=== PATIENT | male | born 1975 | race American Indian/Alaskan Native ===

== ENCOUNTER 2018-07-05 11:01 | Emergency (ER) | payer SELFPAY ==
[2018-07-05] MEDS ORDERED: NACL 0.9% 1000 ML 1,000 ML IV ONE ×2 (11:34→14:17)
[2018-07-05] MEDS ORDERED: ZOFRAN IV ONE (11:38)
[2018-07-05] MEDS ORDERED: D50W (25GM) Syringe IV ONE ×2 (11:38→11:41)
[2018-07-05] MEDS ORDERED: ZOFRAN ONE (11:41)
[2018-07-05 12:03] LABS: Basophils # (Auto) 0.1 K/mm3 (0.0-0.1); Basophils % (Auto) 0.7 % (0.0-1.8); Eosinophils % (Auto) 0.1 % (0.0-4.3); Hematocrit 37.2 % (35.5-45.6); Hemoglobin 12.8 gm/dl (11.8-15.2); Lymphocytes # (Auto) 1.6 K/mm3 (1.2-5.4); Lymphocytes % (Auto) 20.8 % (13.4-35.0); Mean Corpuscular HGB Conc 34 % (32-34); Mean Corpuscular Volume 84 fl (84-94); Monocytes # (Auto) 1.2 K/mm3 (0.0-0.8); Monocytes % (Auto) 15.8 % (0.0-7.3); Platelet Count 256 K/mm3 (140-440); Red Blood Count 4.41 M/mm3 (3.65-5.03); Red Cell Distribution Width 13.5 % (13.2-15.2)
[2018-07-05 12:19] LABS: Partial Thromboplastin Time 35.4 Sec. (24.2-36.6)
--- NOTE | 2018-07-05 12:23 | Emergency Department Report ---
HPI - General Chief Complaint: Weakness Time Seen by Provider: 07/05/18 11:28 - HPI HPI: Room 23 The patient is a 42-year-old male presenting with a chief complaint of weakness and right back pain. The patient states for the past 4 days he's had a decre ased appetite. Patient states for the past 3 days he's had pain in his right lower back has been sharp and intermittent in nature. The patient states he's had nausea vomiting and diarrhea for the same amount of time. This morning the patient noticed hematuria. Patient denies dysuria or fever. Location: [See above] Duration: [See above] Quality: Pain Severity: Moderate Modifying factors: [see above] Context: [see above] Mode of transportation: [not driving] ED Past Medical Hx - Past Medical History Hx Hypertension: Yes Hx Diabetes: Yes - Surgical History Past Surgical History?: No - Family History Family history: no significant - Social History Smoking Status: Never Smoker Substance Use Type: None (denies illicit drug use) - Medications Home Medications: Home Medications Medication Instructions Recorded Confirmed Last Taken Type HYDROcodone/APAP 5-325 [[place] 1 - 2 each PO Q6HR PRN #14 tablet 07/05/18 Unknown Rx 5/325] Promethazine [Phenergan TAB] 25 mg PO Q6HR PRN #20 tab 07/05/18 Unknown Rx Promethazine [Phenergan] 25 mg [place] Q6HR PRN #5 supp.rect 07/05/18 Unknown Rx Sulfamethoxazole/Trimethoprim 1 each PO BID #20 tablet 07/05/18 Unknown Rx [Bactrim DS TAB] ED Review of Systems ROS: Stated complaint: BACK PAIN/NO APPETITE Other details as noted in HPI Constitutional: denies: fever Eyes: denies: eye pain ENT: denies: throat pain Respiratory: no symptoms reported Cardiovascular: denies: chest pain Endocrine: no symptoms reported Gastrointestinal: nausea, vomiting, diarrhea. denies: abdominal pain Genitourinary: hematuria. denies: dysuria Musculoskeletal: back pain Neurological: denies: headache Physical Exam - Physical Exam Vital Signs: Vital Signs 07/05/18 07/05/18 11:12 11:55 Temperature 98.4 F 100 F H Pulse Rate 111 H 107 H Respiratory 18 20 Rate Blood Pressure 132/84 Blood Pressure 150/105 [Left] O2 Sat by Pulse 98 Oximetry Physical Exam: GENERAL: The patient is well-developed well-nourished male lying on stretcher appearing fatigued but in no acute distress. [] HEENT: Normocephalic. Atraumatic. Extraocular motions are intact. Patient has moist mucous membranes. NECK: Supple. Trachea midline CHEST/LUNGS: Clear to auscultation. There is no respiratory distress noted. HEART/CARDIOVASCULAR: Regular. There is tachycardia. There is no gallop rub or murmur. ABDOMEN: Abdomen is soft, nontender. Patient has normal bowel sounds. There is no abdominal distention. SKIN: There is no rash. There is no edema. There is no diaphoresis. NEURO: The patient is awake, alert, and oriented. The patient is cooperative. The patient has normal speech MUSCULOSKELETAL: There is no evidence of acute injury. ED Course Vital Signs 07/05/18 07/05/18 11:12 11:55 Temperature 98.4 F 100 F H Pulse Rate 111 H 107 H Respiratory 18 20 Rate Blood Pressure 132/84 Blood Pressure 150/105 [Left] O2 Sat by Pulse 98 Oximetry - Reevaluation(s) Reevaluation #1: 07/05/18 14:33 Patient states his pain has decreased to a 1/10 after pain medication. ED Medical Decision Making - Lab Data Result diagrams: 07/05/18 11:14 07/05/18 11:14 Laboratory Tests 07/05/18 07/05/18 07/05/18 11:14 11:14 11:14 WBC 7.6 RBC 4.41 Hgb 12.8 Hct 37.2 MCV 84 MCH 29 MCHC 34 RDW 13.5 Plt Count 256 Lymph % (Auto) 20.8 [place] % (Auto) 15.8 H Eos % (Auto) 0.1 Baso % (Auto) 0.7 Lymph # 1.6 [place] # 1.2 H Eos # 0.0 Baso # 0.1 Seg Neutrophils % 62.6 Seg Neutrophils # 4.8 PT 13.6 INR 1.00 APTT 35.4 Sodium 131 L Potassium 3.3 L Chloride 95.0 L Carbon Dioxide 22 Anion Gap 17 BUN 21 H Creatinine 2.0 H Estimated GFR 45 BUN/Creatinine Ratio 11 Glucose 47 L POC Glucose Calcium 9.1 Total Bilirubin 3.10 H AST 30 ALT 27 Alkaline Phosphatase 97 Total Creatine Kinase Total Protein 7.2 Albumin 3.4 L Albumin/Globulin Ratio 0.9 Lipase 29 Urine Color Urine Turbidity Urine pH Ur Specific [place] Urine Protein Urine Glucose (UA) Urine Ketones Urine Blood Urine Nitrite Urine Bilirubin Urine Urobilinogen Ur Leukocyte Esterase Urine WBC (Auto) Urine RBC (Auto) U Epithel Cells (Auto) Urine Bacteria (Auto) 07/05/18 07/05/18 07/05/18 11:14 11:39 12:16 WBC RBC Hgb Hct MCV MCH MCHC RDW Plt Count Lymph % (Auto) [place] % (Auto) Eos % (Auto) Baso % (Auto) Lymph # [place] # Eos # Baso # Seg Neutrophils % Seg Neutrophils # PT INR APTT Sodium Potassium Chloride Carbon Dioxide Anion Gap BUN Creatinine Estimated GFR BUN/Creatinine Ratio Glucose POC Glucose 50 L 176 H Calcium Total Bilirubin AST ALT Alkaline Phosphatase Total Creatine Kinase 143 Total Protein Albumin Albumin/Globulin Ratio Lipase Urine Color Urine Turbidity Urine pH Ur Specific [place] Urine Protein Urine Glucose (UA) Urine Ketones Urine Blood Urine Nitrite Urine Bilirubin Urine Urobilinogen Ur Leukocyte Esterase Urine WBC (Auto) Urine RBC (Auto) U Epithel Cells (Auto) Urine Bacteria (Auto) 07/05/18 Unknown WBC RBC Hgb Hct MCV MCH MCHC RDW Plt Count Lymph % (Auto) [place] % (Auto) Eos % (Auto) Baso % (Auto) Lymph # [place] # Eos # Baso # Seg Neutrophils % Seg Neutrophils # PT INR APTT Sodium Potassium Chloride Carbon Dioxide Anion Gap BUN Creatinine Estimated GFR BUN/Creatinine Ratio Glucose POC Glucose Calcium Total Bilirubin AST ALT Alkaline Phosphatase Total Creatine Kinase Total Protein Albumin Albumin/Globulin Ratio Lipase Urine Color Yellow Urine Turbidity Slightly-cloudy Urine pH 5.0 Ur Specific [place] 1.006 Urine Protein 100 mg/dl Urine Glucose (UA) 150 Urine Ketones Neg Urine Blood Sm Urine Nitrite Neg Urine Bilirubin Neg Urine Urobilinogen 2.0 Ur Leukocyte Esterase Mod Urine WBC (Auto) 15.0 H Urine RBC (Auto) 2.0 U Epithel Cells (Auto) 1.0 Urine Bacteria (Auto) 1+ - Radiology Data Radiology results: report reviewed (CT abdomen and pelvis), image reviewed (CT abdomen and pelvis) [facility] [address] [place] [address] Cat Scan Report Signed Patient: CARMELINA MINOR MR#: [id number] : 1975 Acct:[id number] Age/Sex: 42 / M ADM Date: 07/05/18 Loc: ED Attending Dr: Ordering Physician: YOSI HU MD Date of Service: 07/05/18 Procedure(s): CT abdomen pelvis wo con Accession Number(s): [id number] cc: YOSI HU MD FINAL REPORT EXAM: CT ABDOMEN PELVIS WO CON HISTORY: right back pain TECHNIQUE: CT examination of the ABDOMEN without IV contrast CT examination of the PELVIS w ithout IV contrast PRIORS: None. FINDINGS: Slight linear scar versus atelectasis right lung base. No acute fracture. Normal noncontrast appearance of the liver, adrenals, pancreas, and spleen. Normal caliber abdominal aorta and IVC. Minimal calcific density in the distal gallbladder lumen region may be a small gallstone. No other biliary pathology. No renal calculus or hydronephrosis. No ureteral calculus or distention. No renal mass. Small hiatal hernia. Otherwise normal-appearing stomach and duodenum. No small bowel distention in the abdomen and pelvis. Very small fat containing umbilical hernia and very small fat containing right inguinal hernia. No pelvic free fluid. Normal-appearing urinary bladder, prostate, and seminal vesicles. No definite rectal abnormality. Normal-appearing descending and sigmoid colon. No gross ascites, free air, or colonic distention. Slight diverticulosis ascending colon without definite CT evidence of diverticulitis. Normal-appearing cecum, terminal ileum, and appendix. IMPRESSION: Slight diverticulosis ascending colon without definite CT evidence of acute inflammation Minimal calcification distal gallbladder lumen may be a small gallstone Slight linear scar versus atelectasis right lung base Small hiatal hernia Transcribed By: BAL Dictated By: ANGELITA GU MD Electronically Authenticated By: ANGELITA GU MD Signed Date/Time: 07/05/181335 DD/ 38 TD/TT: 07/05/181338 - Differential Diagnosis hypoglycemia, dehydration, gastroenteritis, renal colic Critical care attestation.: If time is entered above; I have spent that time in minutes in the direct care of this critically ill patient, excluding procedure time. ED Disposition Clinical Impression: Pyelonephritis, Right low back pain, Renal insufficiency, Fever Disposition: TO HOME OR SELFCARE Is pt being admited?: No Does the pt Need Aspirin: No Condition: Stable Instructions: Acute Pyelonephritis (ED), Flank Pain (ED) Additional Instructions: Return to the emergency department immediately should you develop worsening symptoms, fever, inability to tolerate food or liquid or any other concerns. Prescriptions: HYDROcodone/APAP 5-325 [[place] 5/325] 1 - 2 each PO Q6HR PRN #14 tablet PRN Reason: Pain Promethazine [Phenergan TAB] 25 mg PO Q6HR PRN #20 tab PRN Reason: Nausea Promethazine [Phenergan] 25 mg [place] Q6HR PRN #5 supp.rect PRN Reason: Vomiting Sulfamethoxazole/Trimethoprim [Bactrim DS TAB] 1 each PO BID #20 tablet Referrals: PRIMARY CAREMD [Primary Care Provider] - 3-5 Days NICOLE RYAN MD [Staff Physician] - 3-5 Days (Dr Ryan is a thermometer tester. Please follow-up with him for further evaluation) Time of Disposition: 14:41
[2018-07-05 12:26] LABS: Albumin 3.4 g/dL (3.9-5); Calcium 9.1 mg/dL (8.4-10.2)
--- NOTE | 2018-07-05 13:36 | Cat Scan Report ---
FINAL REPORT EXAM: CT ABDOMEN PELVIS WO CON HISTORY: right back pain TECHNIQUE: CT examination of the ABDOMEN without IV contrast CT examination of the PELVIS without IV contrast PRIORS: None. FINDINGS: Slight linear scar versus atelectasis right lung base. No acute fracture. Normal noncontrast appearan ce of the liver, adrenals, pancreas, and spleen. Normal caliber abdominal aorta and IVC. Minimal calcific density in the distal gallbladder lumen region may be a small gallstone. No other bi liary pathology. No renal calculus or hydronephrosis. No ureteral calculus or distention. No renal mass. Small hiatal hernia. Otherwise normal-appearing stomach and duodenum. No small bowel distention in th e abdomen and pelvis. Very small fat containing umbilical hernia and very small fat containing right inguinal hernia. No pelvic free fluid. Normal-appearing urinary bladder, prostate, and seminal vesicles. No definite r ectal abnormality. Normal-appearing descending and sigmoid colon. No gross ascites, free air, or colo renzo distention. Slight diverticulosis ascending colon without definite CT evidence of diverticulitis. Normal-appearing cecum, terminal ileum, and appendix. IMPRESSION: Slight diverticulosis ascending colon without definite CT evidence of acute inflammation Minimal calcification distal gallbladder lumen may be a small gallstone Slight linear scar versus atelectasis right lung base Small hiatal hernia
[2018-07-05] MEDS ORDERED: TYLENOL PO ONE (14:17)
[2018-07-05] MEDS ORDERED: SUBLIMAZE IV ONE (14:17)
[2018-07-05 14:24] LABS: Bacteria,Urine 1+ /HPF (Negative); Bilirubin,Urine NEG (Negative); Blood,Urine SM (Negative); Color,Urine Yellow (Yellow)
[2018-07-05] MEDS ORDERED: BACTRIM DS PO ONE (14:27)
[2018-07-05 15:39] VITALS: BP 156/103
== END 2018-07-05 15:40 | disposition home or self-care (01) ==
LOC: ED 11:01
DX: N12 Tubulo-interstitial nephritis, not specified as acute or chronic (principal); M54.5 Low back pain; I10 Essential (primary) hypertension; E11.9 Type 2 diabetes mellitus without complications
CPT/HCPCS: 36415; 74176; 80053; 81001; 82550; 82962; 83690; 85025; 85610; 85730; 96361; 96374; 96375; 99284; J2405; J3010; J7030

== ENCOUNTER 2019-07-22 14:34 | Emergency (ER) | payer BC ==
[2019-07-22 15:16] LABS: Bilirubin,Urine NEG (Negative); Blood,Urine NEG (Negative); Color,Urine Straw (Yellow); Mucus,Urine FEW /HPF; Urobilinogen,Urine < 2.0 mg/dL (<2.0)
[2019-07-22 15:17] LABS: Protein,Urine >500 mg/dL (Negative)
[2019-07-22 17:08] LABS: Basophils % (Auto) 0.6 % (0.0-1.8); Eosinophils # (Auto) 0.1 K/mm3 (0.0-0.4); Eosinophils % (Auto) 2.2 % (0.0-4.3); Hemoglobin 12.4 gm/dl (11.8-15.2); Lymphocytes # (Auto) 2.4 K/mm3 (1.2-5.4); Lymphocytes % (Auto) 36.1 % (13.4-35.0); Monocytes # (Auto) 0.5 K/mm3 (0.0-0.8)
[2019-07-22 17:14] LABS: Red Blood Count 4.26 M/mm3 (3.65-5.03)
[2019-07-22 17:15] LABS: Hematocrit 36.4 % (35.5-45.6); Mean Corpuscular HGB Conc 34 % (32-34); Mean Corpuscular Volume 85 fl (84-94); Platelet Count 341 K/mm3 (140-440); Red Cell Distribution Width 13.9 % (13.2-15.2)
[2019-07-22 17:56] LABS: Albumin 3.6 g/dL (3.9-5); Calcium 9.2 mg/dL (8.4-10.2)
[2019-07-22] MEDS ORDERED: ONDANSETRON 4 MG/2 ML INJ IV ONE (19:48)
[2019-07-22] MEDS ORDERED: fentaNYL 100 MCG/2 ML INJ IV ONE (19:48)
[2019-07-22] MEDS ORDERED: SODIUM CHLORIDE 0.9% 1000 ML 1,000 ML IV ONE (19:48)
--- NOTE | 2019-07-22 19:54 | Emergency Department Report ---
HPI - General Chief Complaint: Nausea/Vomiting/Diarrhea Time Seen by Provider: 07/22/19 19:41 - HPI HPI: Room 42 The patient is a 43-year-old male presenting with chief complaint of headache nausea vomiting. Patient states his headache nausea vomiting for the past 3 days. Patient states his symptoms began last week with nausea and vomiting than 3 days ago he developed a diffuse headache. He states the headache resolved yesterday but returned again today at work. Patient states he developed midepigastric abdominal pain for one day's been sharp and intermittent in nature. Patient denies diarrhea. Patient denies any preceding trauma. Patient gives his headache is scored 10/10 in his abdominal pain score of 5/10 Location: [See above] Duration: [See above] Quality: [See above] Severity: [See above] Timing: [See above] Context: [See above] Modifying factors: [See above] Associated signs and symptoms: [see above] ED Past Medical Hx - Past Medical History Previous Medical History?: Yes Hx Hypertension: Yes Hx Diabetes: Yes - Surgical History Past Surgical History?: No - Family History Family history: no significant - Social History Smoking Status: Never Smoker Substance Use Type: None (denies illicit drug use. Denies alcohol consumption) - Medications Home Medications: Home Medications Medication Instructions Recorded Confirmed Last Taken Type HYDROcodone/APAP 5-325 [[place] 1 - 2 each PO Q6HR PRN #14 tablet 07/05/18 Unknown Rx 5/325] Promethazine [Phenergan TAB] 25 mg PO Q6HR PRN #20 tab 07/05/18 Unknown Rx Promethazine [Phenergan] 25 mg [place] Q6HR PRN #5 supp.rect 07/05/18 Unknown Rx Sulfamethoxazole/Trimethoprim 1 each PO BID #20 tablet 07/05/18 Unknown Rx [Bactrim DS TAB] Famotidine [Pepcid] 20 mg PO BID #30 tablet 07/22/19 Unknown Rx HYDROcodone/APAP 5-325 [[place] 1 each PO Q6HR PRN #10 tablet 07/22/19 Unknown Rx 5/325] Promethazine [Phenergan] 25 mg PO Q6HR PRN #20 tab 07/22/19 Unknown Rx Promethazine [Phenergan] 25 mg [place] Q6HR PRN #5 supp.rect 07/22/19 Unknown Rx levoFLOXacin [Levaquin TAB] 500 mg PO QDAY #7 tablet 07/22/19 Unknown Rx ED Review of Systems ROS: Stated complaint: HEADACHE/NAUSEA/VOMITING Other details as noted in HPI Constitutional: fever (?) Eyes: denies: eye pain ENT: denies: throat pain Respiratory: no symptoms reported Cardiovascular: denies: chest pain Endocrine: no symptoms reported Gastrointestinal: abdominal pain, nausea, vomiting. denies: diarrhea Genitourinary: denies: dysuria Musculoskeletal: denies: back pain Neurological: headache Physical Exam - Physical Exam Vital Signs: Vital Signs 07/22/19 14:36 Temperature 98.1 F Pulse Rate 107 H Respiratory 18 Rate Blood Pressure 127/87 O2 Sat by Pulse 100 Oximetry Physical Exam: GENERAL: The patient is well-developed well-nourished male lying on stretcher appearing to be in mild discomfort. [] HEENT: Normocephalic. Atraumatic. Extraocular motions are intact. Patient has moist mucous membranes. NECK: Supple. No meningitic signs are noted. There is no nuchal rigidity CHEST/LUNGS: Clear to auscultation. There is no respiratory distress noted. HEART/CARDIOVASCULAR: Regular. There is no tachycardia. There is no gallop rub or murmur. ABDOMEN: Abdomen is soft, nontender. Patient has normal bowel sounds. There is no abdominal distention. SKIN: There is no rash. There is no edema. There is no diaphoresis. NEURO: The patient is awake, alert, and oriented. The patient is cooperative. The patient has no focal neurologic deficits. The patient has normal speech. Cranial nerves II through XII grossly intact, no drift MUSCULOSKELETAL: There is no evidence of acute injury. ED Course Vital Signs 07/22/19 14:36 Temperature 98.1 F Pulse Rate 107 H Respiratory 18 Rate Blood Pressure 127/87 O2 Sat by Pulse 100 Oximetry ED Medical Decision Making - Lab Data Result diagrams: 07/22/19 16:49 07/22/19 16:49 - Radiology Data Radiology results: report reviewed (CT head, CT abdomen and pelvis), image reviewed (CT head, CT abdomen and pelvis) [facility] [address] [place] [address] Cat Scan Report Signed Patient: CARMELINA MINOR MR#: [id number] : 1975 Acct:[id number] Age/Sex: 43 / M ADM Date: 07/22/19 Loc: ED Attending Dr: Ordering Physician: YOSI HU MD Date of Service: 07/22/19 Procedure(s): CT head/brain wo con Accession Number(s): [id number] cc: YOSI HU MD CT HEAD WITHOUT CONTRAST INDICATION / CLINICAL INFORMATION: headache nausea vomiting. TECHNIQUE: All CT scans at this location are performed using CT dose reduction for ALARA by means of automated exposure control. COMPARISON: None available. FINDINGS: HEMORRHAGE: None. EXTRA-AXIAL SPACES: Normal in size and morphology for the patient's age. VENTRICULAR SYSTEM: Normal in size and morphology for the patient's age. CEREBRAL PARENCHYMA: No significant abnormality. No acute territorial infarct. MIDLINE SHIFT OR HERNIATION: None. CEREBELLUM / BRAINSTEM: No significant abnormality. ORBITS: Normal as visualized. SOFT TISSUES of HEAD: No significant abnormality. CALVARIUM: No significant abnormality. PARANASAL SINUSES / MASTOID AIR CELLS: Normal as visualized. ADDITIONAL FINDINGS: None. IMPRESSION: 1. No acute intracranial abnormality. Signer Name: Mer Mendoza MD Signed: 07/22/2019 8:24 PM Workstation Name: [id number] Transcribed By: DT Dictated By: Amor Mendoza MD Electronically Authenticated By: Amor Mendoza MD Signed Date/Time: 07/22/192023 DD/ 22 TD/TT: [facility] [address] [place] [address] Cat Scan Report Signed Patient: CARMELINA MINOR MR#: [id number] : 1975 Acct:[id number] Age/Sex: 43 / M ADM Date: 07/22/19 Loc: ED Attending Dr: Ordering Physician: YOSI HU MD Date of Service: 07/22/19 Procedure(s): CT abdomen pelvis wo con Accession Number(s): [id number] cc: YOSI HU MD CT ABDOMEN AND PELVIS WITHOUT CONTRAST INDICATION / CLINICAL INFORMATION: abdominal pain nausea vomiting. TECHNIQUE: Axial CT images were obtained through the abdomen and pelvis without IV contrast. All CT scans at this location are performed using CT dose reduction for ALARA by means of automated exposure control. COMPARISON: CT dated 07/05/18 FINDINGS: LOWER CHEST: No significant abnormality. LIVER: No significant abnormality. GALLBLADDER: Gallbladder is contracted with calcification at the fundus, unchanged. BILE DUCTS: No significant abnormality. PANCREAS: No significant abnormality. SPLEEN: No significant abnormality. ADRENALS: No significant abnormality. RIGHT KIDNEY and URETER: No significant abnormality. LEFT KIDNEY and URETER: No significant abnormality. STOMACH and SMALL BOWEL: No significant abnormality. COLON: Mild diverticulosis without acute inflammation. APPENDIX: No significant abnormality. PERITONEUM: No free fluid. No free air. No fluid collection. LYMPH NODES: No significant adenopathy. AORTA and ARTERIES: No significant abnormality. IVC and VEINS: No significant abnormality. URINARY BLADDER: No significant abnormality. REPRODUCTIVE ORGANS: No significant abnormality. ADDITIONAL FINDINGS: None. SKELETAL SYSTEM: No significant abnormality. IMPRESSION: 1. No inflammatory process or bowel obstruction. 2. Contracted gallbladder with calcification at the fundus, unchanged. Signer Name: Mer Mendoza MD Signed: 07/22/2019 8:29 PM Workstation Name: [id number] Transcribed By: DT Dictated By: Amor Mendoza MD Electronically Authenticated By: Amor Mendoza MD Signed Date/Time: 07/22/192028 DD/ 25 TD/TT: - Differential Diagnosis headache, ICH, gastritis, pancreatitis, Critical care attestation.: If time is entered above; I have spent that time in minutes in the direct care of this critically ill patient, excluding procedure time. ED Disposition Clinical Impression: Headache, Nausea & vomiting, Gastritis, UTI (urinary tract infection), Elevated lipase Disposition: TO HOME OR SELFCARE Is pt being admited?: No Does the pt Need Aspirin: No Condition: Stable Instructions: Acute Headache (ED) Additional Instructions: Return to the emergency department should you develop worsening symptoms, inability to tolerate food or liquids, high fever or any other concerns Prescriptions: levoFLOXacin [Levaquin TAB] 500 mg PO QDAY #7 tablet HYDROcodone/APAP 5-325 [[place] 5/325] 1 each PO Q6HR PRN #10 tablet PRN Reason: Pain Famotidine [Pepcid] 20 mg PO BID #30 tablet Promethazine [Phenergan] 25 mg PO Q6HR PRN #20 tab PRN Reason: Nausea Promethazine [Phenergan] 25 mg [place] Q6HR PRN #5 supp.rect PRN Reason: Vomiting Referrals: RACHELE ERICKSON MD [Staff Physician] - 3-5 Days Time of Disposition: 20:57
--- NOTE | 2019-07-22 20:28 | Cat Scan Report ---
CT HEAD WITHOUT CONTRAST INDICATION / CLINICAL INFORMATION: headache nausea vomiting. TECHNIQUE: All CT scans at this location are performed using CT dose reduction for ALARA by means of automated e xposure control. COMPARISON: None available. FINDINGS: HEMORRHAGE: None. EXTRA-AXIAL SPACES: Normal in size and morphology for the patient's age. VENTRICULAR SYSTEM: Normal in size and morphology for the patient's age. CEREBRAL PARENCHYMA: No significant abnormality. No acute territorial infarct. MIDLINE SHIFT OR HERNIATION: None. CEREBELLUM / BRAINSTEM: No significant abnormality. ORBITS: Normal as visualized. SOFT TISSUES of HEAD: No significant abnormality. CALVARIUM: No significant abnormality. PARANASAL SINUSES / MASTOID AIR CELLS: Normal as visualized. ADDITIONAL FINDINGS: None. IMPRESSION: 1. No acute intracranial abnormality. Signer Name: Mer Mendoza MD Signed: 07/22/2019 8:24 PM Workstation Name: [id number]
--- NOTE | 2019-07-22 20:33 | Cat Scan Report ---
CT ABDOMEN AND PELVIS WITHOUT CONTRAST INDICATION / CLINICAL INFORMATION: abdominal pain nausea vomiting. TECHNIQUE: Axial CT images were obtained through the abdomen and pelvis without IV contrast. All CT scans at [facility] location are performed using CT dose reduction for ALARA by means of automated exposure control. COMPARISON: CT dated 07/05/18 FINDINGS: LOWER CHEST: No significant abnormality. LIVER: No significant abnormality. GALLBLADDER: Gallbladder is contracted with calcification at the fundus, unchanged. BILE DUCTS: No significant abnormality. PANCREAS: No significant abnormality. SPLEEN: No significant abnormality. ADRENALS: No significant abnormality. RIGHT KIDNEY and URETER: No significant abnormality. LEFT KIDNEY and URETER: No significant abnormality. STOMACH and SMALL BOWEL: No significant abnormality. COLON: Mild diverticulosis without acute inflammation. APPENDIX: No significant abnormality. PERITONEUM: No free fluid. No free air. No fluid collection. LYMPH NODES: No significant adenopathy. AORTA and ARTERIES: No significant abnormality. IVC and VEINS: No significant abnormality. URINARY BLADDER: No significant abnormality. REPRODUCTIVE ORGANS: No significant abnormality. ADDITIONAL FINDINGS: None. SKELETAL SYSTEM: No significant abnormality. IMPRESSION: 1. No inflammatory process or bowel obstruction. 2. Contracted gallbladder with calcification at the fundus, unchanged. Signer Name: Mer Mendoza MD Signed: 07/22/2019 8:29 PM Workstation Name: [id number]
[2019-07-22] MEDS ORDERED: HYDROmorphone 1 MG/1 ML INJ IV ONE (20:52)
[2019-07-22 21:38] VITALS: BP 126/76
== END 2019-07-22 21:41 | disposition home or self-care (01) ==
LOC: ED 14:34
DX: N39.0 Urinary tract infection, site not specified (principal); R51 Headache; K29.70 Gastritis, unspecified, without bleeding; R74.8 Abnormal levels of other serum enzymes; I10 Essential (primary) hypertension; E11.9 Type 2 diabetes mellitus without complications; Z79.899 Other long term (current) drug therapy
CPT/HCPCS: 36415; 70450; 74176; 80053; 81001; 83690; 85025; 87086; 96361; 96374; 96375; 99284; J1170; J2405; J3010; J7030

== ENCOUNTER 2021-03-24 12:04 | Emergency (ER) | payer BC | END 2021-03-24 12:30 | LOC: ED 12:04 | DX: E11.8 Type 2 diabetes mellitus with unspecified complications (principal); I10 Essential (primary) hypertension; Z53.21 Procedure and treatment not carried out due to patient leaving prior to being seen by health care provider ==